=== PATIENT | female | born 1990 | race Caucasian/White ===

== ENCOUNTER → 2017-04-11 | Outpatient (REF) | payer OTHER | LOC: M LAB REF 16:50 | PROVIDERS: ATTEND Family Medicine | DX: N39.0 Urinary tract infection, site not specified (principal) ==

== ENCOUNTER → 2017-10-10 | Outpatient (REF) | payer OTHER | LOC: M LAB REF 18:26 | DX: H60.313 Diffuse otitis externa, bilateral (principal) | CPT/HCPCS: 87186 ==

== ENCOUNTER 2017-11-07 20:47 | Emergency (ER) | payer OTHER ==
[2017-11-08] MEDS: NS 1,000 ML IV (03:01)
[2017-11-08] MEDS: KETOROLAC 30 MG/ML VIAL (J1885) IV (03:02)
[2017-11-08] MEDS: diphenhydrAMINE INJ 50MG/ML VIAL (J1200) IV (03:03)
[2017-11-08] MEDS: METOCLOPRAMIDE INJ 10MG/2ML VIAL (J2765) IV (03:06)
== END 2017-11-08 05:00 | disposition home or self-care (01) ==
LOC: M ED 20:47
DX: G43.909 Migraine, unspecified, not intractable, without status migrainosus (principal); F17.210 Nicotine dependence, cigarettes, uncomplicated
CPT/HCPCS: J1200

== ENCOUNTER → 2018-09-05 | Outpatient (CLI) | payer OTHER ==
[~2018-09-05] MED LIST: TYLE500T78 PO
--- NOTE | 2018-09-05 14:50 | REP ---
Clinical: Dysphasia. Technique: AP and lateral soft tissue neck radiographs. Findings: Airway is patent, midline and normal in appearance. Surrounding soft tissues are unremarkable. Underlying osseous structures are intact and normal. Impression: Normal soft tissue neck radiographs. Electronically Signed by Davide Simmons MD 09/05/2018 02:41 P
== END ==
LOC: M WUC 12:37
PROVIDERS: ATTEND Physician Assistant
DX: R47.02 Dysphasia (principal)

== ENCOUNTER → 2018-09-05 | Outpatient (REF) | payer OTHER | LOC: M LAB REF 16:36 | PROVIDERS: ATTEND Physician Assistant | DX: J02.9 Acute pharyngitis, unspecified (principal) ==